=== PATIENT | male | born 1995 | race Two or more races ===

== ENCOUNTER 2017-10-01 06:04 | Emergency (ER) | payer OTHER ==
[2017-10-01 06:24] VITALS: PULSE 112; RESP 20; TEMP 98.2; O2SAT 97
--- NOTE | 2017-10-01 06:51 | ED PDOC ---
HPI: Psych/Substance Abuse Time Seen by Provider: 10/01/17 06:08 Chief Complaint (Nursing): Alcohol Ingestion Chief Complaint (Provider): Alcohol Ingestion ED Caveat: Intoxicated History Per: Patient, EMS Additional Complaint(s): 22 y/o [place] male is presented to the ED by EMS for public intoxication. Patient is speaking inappropriately to the nursing staff. History couldn't be obtained due to intoxication. Past Medical History Vital Signs: Last Vital Signs Temp 98.2 F 10/01/17 06:21 Pulse 112 H 10/01/17 06:21 Resp 20 10/01/17 06:21 BP 160/102 H 10/01/17 06:21 Pulse Ox 97 10/01/17 06:21 - Medical History PMH: Asthma - Family History Family History: States: No Known Family Hx - Allergies Allergies/Adverse Reactions: Allergies Allergy/AdvReac Type Severity Reaction Status Date / Time No Known Allergies Allergy Verified 10/01/17 06:20 Review of Systems Review Of Systems: ROS cannot be obtained secondary to pt's inabilty to answer questions. (Answeers cannot be obtained due to alcohol intoxiccation) Physical Exam - Reviewed Nursing Documentation Reviewed: Yes Vital Signs Reviewed: Yes - Physical Exam Appears: Positive for: Well, Non-toxic, No Acute Distress Head Exam: Positive for: ATRAUMATIC, NORMAL INSPECTION, NORMOCEPHALIC Skin: Positive for: Normal Color, Warm, Dry Eye Exam: Positive for: EOMI, PERRL Cardiovascular/Chest: Positive for: Regular Rate, Rhythm Respiratory: Positive for: Normal Breath Sounds. Negative for: Accessory Muscle Use, Respiratory Distress Gastrointestinal/Abdominal: Positive for: Normal Exam, Bowel Sounds, Soft. Negative for: Tenderness Back: Positive for: Normal Inspection. Negative for: L CVA Tenderness, R CVA Tenderness Extremity: Positive for: Normal ROM. Negative for: Tenderness, Pedal Edema Neurologic/Psych: Positive for: Other (Slurred speech). Negative for: Oriented - Laboratory Results Result Diagrams: 10/01/17 08:00 10/01/17 08:35 - ECG O2 Sat by Pulse Oximetry: 97 (RA) Pulse Ox Interpretation: Normal Medical Decision Making Medical Decision Making: Time: 06:30 Initial Impression: 22 y/o male with Alcohol intoxication Plan: Alcohol serum CMP Drug screen, urine CBC w/ differential Accucheck Time: 07:00 Patient is signed out to Dr. Alicia pending labs and reevaluation Scribe Attestation: Documented by Pradeep Post acting as a scribe for Haresh Garcia MD. Scribe Attestation: All medical record entries made by the Scribe were at my direction and personally dictated by me. I have reviewed the chart and agree that the record accurately reflects my personal performance of the history, physical exam, medical decision making, and the department course for this patient. I have also personally directed, reviewed, and agree with the discharge instructions and disposition. Disposition - Clinical Impression Clinical Impression: Alcohol abuse - Disposition Referrals: [facility] [Outside] - 10/03/17 Disposition: Transfer of Care Disposition Time: 07:00 Condition: FAIR Additional Instructions: Return if not better in 3 days. Instructions: Abuse of Alcohol (ED)
[2017-10-01 07:09] VITALS: BP 125/73
[2017-10-01 09:01] LABS: BASO % 0.9 % (0.0-2.0); EOS # 0.1 K/uL (0.0-0.7); EOS % 1.2 % (0.0-4.0); HEMATOCRIT 46.7 % (35.0-51.0); LYMPH # 2.2 K/uL (1.0-4.3); MEAN CELL VOLUME 94.1 fl (80.0-94.0); MEAN CORPUSCULAR HEMOGLOBIN 32.7 pg (27.0-31.0); MEAN CORPUSCULAR HGB CONC 34.7 g/dL (33.0-37.0); MEAN PLATELET VOLUME 7.5 fl (7.2-11.7); MONO # 0.4 K/uL (0.0-0.8); MONO % 7.5 % (0.0-10.0); NEUT # 2.2 K/uL (1.8-7.0); NEUT % 45.4 % (50.0-75.0); NRBC % 0.1 % (0.0-0.0); RED CELL DISTRIBUTION WIDTH 12.6 % (11.5-14.5); WHITE BLOOD COUNT 4.9 K/uL (4.8-10.8)
[2017-10-01 09:11] LABS: ALB/GLOB RATIO 1.5 (1.0-2.1); ALKALINE PHOSPHATASE 68 U/L (38-126); ALT/SGPT 49 U/L (21-72); AST/SGOT 57 U/L (17-59); BILIRUBIN,TOTAL 0.8 mg/dl (0.2-1.3); BLOOD UREA NITROGEN 11 mg/dl (9-20); CALCIUM 8.8 mg/dL (8.4-10.2); CARBON DIOXIDE 28 mmol/L (22-30); CHLORIDE 109 mmol/L (98-107); GFR AFRICAN-AMERICAN > 60; GLUCOSE,RANDOM 65 mg/dL (75-110); POTASSIUM 3.7 MMOL/L (3.6-5.0); SODIUM 156 mmol/l (132-148); TOTAL PROTEIN 8.7 G/DL (6.3-8.2)
[2017-10-01 09:28] LABS: ALCOHOL SERUM 347 mg/dl (0-10)
--- NOTE | 2017-10-01 10:04 | ED PDOC ---
- Laboratory Results Result Diagrams: 10/01/17 08:00 10/01/17 08:35 Interpretation Of Abn Labs: 347 etoh - ECG O2 Sat by Pulse Oximetry: 97 (RA) Pulse Ox Interpretation: Normal - Progress ED Course And Treament: 700: Took over care from Dr. Garcia. Fu on sobriety. 100: Stable. Continue monitoring. 1156: Stable. AAOx3. Pain free. Tolerated PO. Clinical sobriety met. Ambulated with no issues. Disposition - Clinical Impression Clinical Impression: Alcohol abuse - POA Present On Arrival: None - Disposition Referrals: [facility] [Outside] - 10/03/17 Disposition: Routine/Home Disposition Time: 11:57 Condition: STABLE Additional Instructions: Return if not better in 3 days. Instructions: Abuse of Alcohol (ED)
== END 2017-10-01 12:10 | disposition home or self-care (01) ==
LOC: H.ER 06:04
DX: F10.129 Alcohol abuse with intoxication, unspecified (principal); J45.909 Unspecified asthma, uncomplicated